=== PATIENT | female | born 2005 ===

== ENCOUNTER 2025-01-28 14:08 | Emergency (ER) | payer OTHER, SELFPAY ==
--- NOTE | ~2025-01-28 | CT_ITS ---
CLINICAL HISTORY: kidney stones. blood in urine CT abdomen and pelvis without contrast Comparison: None available Findings: No nephrolithiasis or hydronephrosis. No bladder stone. No consolidation at the lung bases. Unremarkable gallbladder. The other solid organs are normal. No bowel wall thickening or dilation. A normal appendix is identified. Normal vasculature. No lymphadenopathy. Trace pelvic free fluid, likely physiologic. No acute fracture. Impression: No urinary tract stone, obstruction or other acute findings. This document has been electronically signed by: Salima Tse MD on 01/28/2025 17:03:10
[2025-01-28 14:16] VITALS: BP 113/86; PULSE 64; RESP 16; TEMP 36; O2SAT 100; BMI 25.8
--- NOTE | 2025-01-28 14:19 | ED.GENADULT ---
HPI - General Adult General Chief complaint: Abdominal Pain Stated complaint: Abdominal Cramping Time Seen by Provider: 01/28/25 14:35 Source: patient Mode of arrival: ambulatory Limitations: no limitations History of Present Illness ED Provider: Tho Mcfarlane [facility] narrative: 19 yold female presents to the ED for abdominal cramping, diarrhea, nausea, hedache, and spotting since last night. Patient states no fever or chills. Patient meghan any dysuria, hematuria, flank pain, fever, or chills. Related Data Previous Rx's ?Medication ?Instructions ?Recorded naproxen 500 mg tablet 500 mg PO BID PRN pain #14 tabs 01/28/25 Allergies Allergy/AdvReac Type Severity Reaction Status Date / Time No Known Allergies Allergy Verified 01/28/25 14:20 Review of Systems Review of Systems: nause, cramping, diarhhea, lowe, anusea, vomitting, haeadcje Yes all other systems are reviewed and are negative [facility] Social History Social History Smoked in Last 30 Days: No Use of substances other than those prescribed or required for medical reasons: No Advance Directives: No Advance Directives Information Provided: Yes Do you have a plan to hurt others: No Plan Patient : No Physical Exam ED Vital Signs: Vital Signs - 24 hr 01/28/25 14:16 Temperature 96.8 F Pulse Rate 64 Respiratory Rate 16 Blood Pressure 113/86 Pulse Oximetry 100 Oxygen Delivery Method Room Air BMI result Body Mass Index 25.8 Const General: cooperative, healthy appearing, comfortable, no acute distress, well developed, alert, awake and Physically active Orientation/consciousness: patient oriented x3 HENMT Head: Yes normal to inspection, Yes No palpable skull fracture present, Yes normocephalic and Yes atraumatic Eyes General: appearance normal, both eyes and all related structures Neck Neck: Yes normal visual inspection, Yes full ROM, Yes no lymphadenopathy, Yes no meningeal signs, Yes trachea midline, Yes supple, No anterior neck swelling and No tender Chest Chest palpation & inspection: normal inspection of the chest and normal palpation of entire chest wall Resp Effort & Inspection: normal respiratory effort and able to speak in complete sentences Auscultation: clear to auscultation bilaterally Cardio Jugular venous distension: no JVD Heart sounds: S1 normal heart sound present and S2 normal heart sound present GI Inspection: Yes normal to inspection Palpation (GI): Soft to palpation, not firm, Tenderness to palpation present (GI) suprapubicly, no guarding and not rigid General: Yes no CVA tenderness Back/Spine/Pelvis Back: no CVA tenderness and No back tenderness Skin General skin exam: no rashes or lesions noted and elasticity normal Neuro General: patient oriented x3, gait normal, tone normal, moves all extremities, Normal light touch and pain sensation, no meningeal signs, no focal motor deficits, CN's II-XI intact bilaterally and normal sensation to monofilament Extrem General: Yes normal to inspection, Yes full ROM and Yes capillary refill normal Psych Appearance: grossly normal, well kempt and not disheveled Course Course Course Narrative: RME, this is a rapid medical exam performed by Reed Umana please refer to primary provider for complete H&P- 19 year old female presents for evaluation of lower abdominal pain. She has associated nausea. Plan for labs, UA, and testing. Medical Decision Making Medical Decision Making [facility] Narrative: 19-year-old female presents to the ED for nausea vomiting diarrhea vaginal spotting and headache. Patient is concerned she might be . Labs ordered. Patietn denies any heavy vaginal bleeding or discharge. 4:49pm: Patient negative . UA shows blood. Chemistry CBC normal. CT scan was ordered but patient refused to stay and would like to be discharged. Patient explained CAT scan ordered to rule out any possible kidney stone colitis or any other concerning life-threatening etiology but patient refused. Patient is agreeable to sign against medical advice explained risks including . Differential Diagnosis Differential Diagnoses: The differential diagnosis associated with the presentation includes (Kidney stones, ectopic , dysfunctional uterine bleeding) Admission/Observation Consideration of admission/observation: Escalation of care including admission/observation considered Lab Data [facility] Lab Attestation statement: I reviewed the patient's lab results. 01/28/25 15:16 01/28/25 15:16 Labs: Lab Results 01/28/25 Range/Units 15:16 WBC 9.3 (4.8-10.8) X10*3/uL RBC 4.90 (4.20-5.50) X10*6/uL Hgb 13.3 (12.0-16.0) g/dl Hct 40.4 (37.0-47.0) % MCV 82.4 (80.0-98.0) fL MCH 27.1 (27.0-33.0) pg MCHC 32.9 (31.0-35.0) g/dl RDW 13.9 (11.0-16.0) % Plt Count 259 (160-400) X10*3/uL MPV 11.3 (9.4-12.3) fL Immature Gran % (Auto) 0.3 (0.0-0.4) % Neut % (Auto) 71.8 (45-73) % Lymph % (Auto) 20.5 (20-40) % [place] % (Auto) 6.0 (2-11) % Eos % (Auto) 0.5 (0-4) % Baso % (Auto) 0.9 (0-2) % Lymph # (Auto) 1.9 (1.2-4.9) X10*3/uL [place] # (Auto) 0.6 (0.1-1.2) X10*3/uL Eos # (Auto) 0.1 (0.0-0.4) X10*3/uL Baso # (Auto) 0.1 (0.0-0.2) X10*3/uL Abs Immat Gran (auto) 0.03 (0.00-0.03) X10*3/uL Absolute Neuts (auto) 6.7 (2.0-8.3) x10*3/uL Absolute Nucleated RBC 0.000 (0.0-0.012) X10*3/uL Nucleated RBC % (auto) 0.0 (0.0-0.2) /100WBC Sodium 137 (135-145) mmol/L Potassium 4.8 (3.3-5.1) mmol/L Chloride 106 (96-108) mmol/L Carbon Dioxide 27 (22-29) mmol/L Anion Gap 9 L (12-20) BUN 21 H (9-16) mg/dL Creatinine 0.81 (0.5-1.4) mg/dL Estim Creat Clear Calc 117.0 Estimated GFR > 60 Random Glucose 90 (60-115) mg/dL Calcium 9.3 (8.4-10.2) mg/dL Total Bilirubin 0.4 (0.0-1.0) mg/dL AST 14 (5-31) U/L ALT 13 (0-31) U/L Alkaline Phosphatase 48 (39-117) U/L Total Protein 7.3 (6.5-8.0) g/dL Albumin 4.5 (3.5-5.0) g/dL Lipase 31 (8-78) U/L Beta HCG, Quant < 2 mIU/mL Urine Color Yellow Urine Appearance Clear Urine pH 6.5 (5.0-9.0) Ur Specific [place] 1.015 (1.005-1.025) Urine Protein Negative (Neg-Trace) mg/dL Urine Glucose (UA) Negative (Negative) mg/dL Urine Ketones Negative (Negative) mg/dL Urine Blood Large (3+) H (Negative) Urine Nitrite Negative (Negative) Ur Leukocyte Esterase Negative (Negative) Urine RBC 11-20 H (0-2) /HPF Urine WBC 0-5 (0-5) /HPF Ur Squamous Epith Cells 0-2 (0-2) /HPF Urine Bacteria Trace (None Seen) Hyaline Casts 0-2 (0-2) /LPF Influenza Type A (PCR) NEGATIVE (Negative) Influenza Type B (PCR) NEGATIVE (Negative) RSV RNA Qual (PCR) NEGATIVE (Negative) SARS-CoV-2 RNA (RT-PCR) NEGATIVE (Negative) Independent Historian Clinical information obtained from an independent historian. History obtained from or confirmed by: Other (Patient) Discharge Plan Discharge Clinical Impression: Abdominal pain Patient Disposition: Left Against Medical Advice Instructions: Abdominal Pain (ED) Additional Instructions: Recommend follow-up with primary care provider. Return abdominal pain, vaginal bleeding, vaginal discharge, flank pain, fever, chills, nausea, vomiting, or any other concerning symptoms. Prescriptions: New naproxen 500 mg tablet 500 mg PO BID PRN (Reason: pain) Qty: 14 0RF Stand Alone Forms: Against Medical Advice, Work/School Release Interventions: ED Discharge Assessment Last Done: 01/28/25 17:07 Discharge Date/Time: 01/28/25 17:09 Print Language: Citizen Of [place]
--- OUTSIDE RECORDS SUMMARY | 2025-01-28 14:35 | XMS_ITS | Clinical Summary ---
Author Organization [facility] Address [address] [place] [address] Care Team Providers Care Buildings And Grounds Superintendent Name Role Phone Kay Gonzalez MD Primary Care Provider Source Comments PLEASE NOTE, if this patient is a minor, it may be UNLAWFUL to discuss sensitive information that is contained in these records (such as FAMILY PLANNING, MENTAL HEALTH or SUBSTANCE ABUSE) with the minor patient's parent or other person without the patient's specific authorization.[facility] Allergies No known active allergies Medications polyethylene glycol 3350 17 gram packetIndications :Constipation, unspecified constipation type Mix 1 packet in 1 cup of juice, and take po daily for constipatio n. 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 Immunizations Immunization Administration Dates Next Due DTAP (DAPTACEL),5 PERTUSSIS ANTIGENS 08/2009,09/25/2006,10/07/2005,05/02,01/30/2005 Flu, Preservative Free 09/21/2020 HEP B, PED/ADOL ([id number]-WJQU/RECOMBIVAX-PEDS) 10/09/2005,05/02/2005,01/30/2005 HPV 9 (Gardasil) 01/09/2017,03/12/2016, 6 Hep A, Ped/adol, 2 Dose 06/09/2019,12/02/2006 Hib (PRP-T) 09/25/2006, 6,05/02/2005,01/30 History Of Varicella 01/30/2019 IPV (IPOL) 10/20/2009, 6,05/02/2005,01/30 MENINGOCOCCAL MCV4P (MENACTRA) 03/12/2016 MMR (MMR II/Priorix) 10/20/2009,09/25/2006 PNEUMOCOCCAL CONJUGATE PCV 7 09/25/2006, 09/11/2005,05/02/2005,01/30 Pneumococcal Conjugate, unspecified 10/09/2005 TDAP 01/09/2016 Varicella (Varivax), Live Vaccine 09/25/2006 Social History Tobacco Use Types Packs/Day Years Used Date Smoking Tobacco: Never Smokeless Tobacco: Never Alcohol Use Standard Drinks/Week Comments No 0 (1 standard drink = 0.6 oz pur e alcohol) Social Connections Answer Date Recorded Connectedness 0 04/30/2024 Financial Resource Strain Answer Date R ecorded Financial Resource Strain 0 2023 Stress Answer Date Recorded Stress 0 04/30/2024 Physical Activity Answer Date Recorded Physical Activity 0 04/30/2024 Food Insecurity Answer Date Recorded Food 0 04/30/2024 Transportation Needs Answer Date Record ed Transportation 0 04/30/2024 Housing Stability Answer Date Recorded Housing 0 04/30/2024 Safety and Environment Answer Date Myron rded Safety 0 04/30/2024 Utilities Answer Date Recorded Utilities 0 04/30/2024 Employment Answer Date Recorded Stress 0 04/30/2024 Comments No Sex and Gender Information Value Date Recorded Sex Assigned at Female 04/03/2018 12:20 PM PDT Legal Sex Female 11:36 AM PDT Gender Identity Female 04/03/2018 12:20 PM PDT Sexual Orientation Not on file Last Filed Vital Signs Vital Sign Reading Time Taken Comments Blood Pressure 108/68 09/21/2020 9:07 AM EST Pulse 92 09/21/2020 9:07 AM EST Temperature 37 C (98.6 F) 09/21/2020 9:07 AM EST Respiratory Rate 16 09/21/2020 9:07 AM EST Oxygen Saturation - - Inhaled Oxygen Concentration - - Weight 68.9 kg (152 lb) 09/21/2020 9:07 AM EST Height 165.1 cm (5' 5 ) 09/21/2020 9:07 AM EST Body Mass Index 25.29 09/21/2020 9:07 AM EST Plan of Treatment Health Maintenance Due Date Last Done Comments Tobacco Screening 2004 Anxiety Screening 04/03/2019 04/03/2018 Relationship Safety Screening/Counseling 11/28/2019 Chlamydia Screening 09/21/2021 09/21/2020 Gonorrhea Screening 09/21/2021 09/21/2020 Hypertension Screening (#1) 09/21/2023 [id number] () 03/21/2024 Alcohol and Drug Screen 07/21/2024 09/21/2020, 01/09 Depression Annual Screen 07/21/2024 09/21/2020, 12/20 Imm-Influenza (#1) 2025 09/21/2020 Imm-DTaP/Tdap/Td (7 - Td or Tdap) 01/08/2026 01/09/2016, 10/20/2009, 09/25/2006, Additional history exists Imm-Hepatitis B Completed 10/09/2005, 04/20, 01/30/2005 Imm-MMR Completed 10/20/2009, 09/25/2006 Imm-HPV Completed 01/09/2017, 02/19, 01/09/2016 Imm-Hepatitis A Completed 06/09/2019, 12/02/2006 HIV Screening Completed 09/21/2020 Hepatitis C Screening Completed 09/21/2020 Procedures Procedure Name Priority Date/Time Associated Diagnosis Comments GC DNA PROBE, URINE Routine 09/21/2020 1 1:54 AM EST Encounter for routine child health examination without abnormal findings CHLAMYDIA DNA PROBE, URINE Routine 09/21/2020 11:54 AM EST Encounter for routine child health examination without abnormal findings ANTIBODY HIV-1&HIV-2 SINGLE RESULT Routine 09/21/2020 10:05 AM EST Encounter for routine child health examination without abnormal findings HEPATITIS C ANTIBODY Routine 09/21/2020 10:05 AM EST Encounter for routine child health examination without abnormal findings from Last 3 Months or Most Recently Relevant to Health Maintenance Results * GC DNA PROBE, URINE ([employer]) (09/21/2020 11:54 AM EST) GC DNA URINE NEGATIVE NEGATIVE [facility] Urine Urine specimen / Unknown 09/21/2020 11:54 AM EST 09/21/2020 11:54 AM EST [facility] - 09/25/2020 10:44 AM EST [employer], [place] [address] Improvement [place] [id number] ORD# [id number] Marcie Woodard MD LAB - MICROBIOLOGY AMBULATOR Y Final Result [address] [address], [place] [phone] * CHLAMYDIA DNA PROBE, URINE ([employer]) (09/21/2020 11:54 AM EST) Pathologist [facility] CHLAMYDIA DNA URINE NEGATIVE NEGATIVE [facility] Urine Urine specimen / Unknown 09/21/2020 11:54 AM EST 09/21/2020 11:54 AM EST [facility] - 09/25/2020 10:44 AM EST [employer], [place] [address] Improvement [place] [id number] ORD# [id number] Marcie Woodard MD LAB - MICROBIOLOGY AMBULATOR Y Final Result [address] [address], [place] [phone] * HEPATITIS C ANTIBODY (09/21/2020 10:05 AM EST) Pathologist [facility] HEPATITIS C VIRUS SCREEN NEGATIVE NEGATIVE [facility] Blood Blood / Unknown 09/21/2020 1 0:05 AM EST 09/21/2020 10:11 AM EST [facility] - 09/21/2020 2:06 PM EST [employer], [place] [address] Improvement [place] [id number] ORD# [id number] Marcie Woodard MD LAB - BLOOD DRAW Final Resul t Performing Organization Address City/[facility]/[place] [address], * HIV-1 & HIV-2 ANTIBODIES (09/21/2020 10:05 AM EST) [facility] HIV 1 AND 2 ANTIBODY SCREEN NEGATIVE NEGATIVE [facility] Comment: This assay is a 4th generation assay allowing for earlier detection of HIV infection by detecting the presence of the HIV-1 p24 antigen as well as the traditional antibodies to HIV type 1 (including group O) and type 2. Use of a 4th generation assay is the current CDC recommendation for HIV screening. Blood Blood / Unknown 09/21/2020 1 0:05 AM EST 09/21/2020 10:11 AM EST [facility] - 09/21/2020 2:06 PM [facility], [place] [address] Improvement Spec [place] [id number] ORD# [id number] Marcie Woodard MD LAB - BLOOD DRAW Final Resul t Performing Organization Address City/[facility]/[place] [address], [place] [phone] from Last 3 Months or Most Recently Relevant to Health Maintenance Insurance [facility] [address] [employer] Care Teams Buildings And Grounds Superintendent Relationship Specialty Start Date End Date Kay Gonzalez MD [address] [place] [address] PCP - General Pediatrics 09/05/22
--- OUTSIDE RECORDS SUMMARY | 2025-01-28 14:35 | XMS_ITS | Clinical Summary ---
Author Organization [facility] Address [address] [place] [address] Phone Care Team Providers Care Obstetrics Nurse Practitioner Name Role Phone Physician, Pcp Unknown Primary Care Provider Bhakti vailable Allergies No known active allergies Social History Tobacco Use Types Packs/Day Years Used Date Smoking Tobacco: Never Smokeless Tobacco: Never Tobacco Cessation:Counseling Given: Not Answered Comments Unknown Sex and Gender Information Value Date Recorded Sex Assigned at Not on file Legal Sex Female 4:32 PM EST Gender Identity Not on file Sexual Orientation Not on file Obstetrics History Last Filed Vital Signs Vital Sign Reading Time Taken Comments Blood Pressure 125/75 10/28/2024 9:31 PM EDT Pulse 83 10/28/2024 9:31 PM EDT Temperature 36.6 C (97.8 F) 10/28/2024 7:19 PM EDT Respiratory Rate 16 10/28/2024 9:31 PM EDT Oxygen Saturation 100% 10/28/2024 9:31 PM EDT Inhaled Oxygen Concentration - - Weight 70.3 kg (155 lb) 10/28/2024 7:19 PM EDT Height 165.1 cm (5' 5 ) 10/28/2024 7:19 PM EDT Body Mass Index 25.79 10/28/2024 7:19 PM EDT Plan of Treatment Health Maintenance Due Date Last Done Comments Gonorrhea/Chlamydia Screening 2004 Varicella Vaccines (2 of 2 - 2-dose childhood series) 11/17/2009 09/25/2006 Meningococcal B Vaccine (1 of 2 - Standard) 2020 COVID-19 Vaccine ( - season) 2024 Annual Well Child Visit (3-21 years old) 10/29/2024 09/21/2020, 06/09/2019, 04/03/2018, Additional history exists Depression Screening 10/29/2024 Social Influencers of Health Screening 10/29/2024 Influenza Vaccine (#1) 2025 09/21/2020 Cholesterol Screening (Lipid Panel) 09/21/2025 09/21/2020 DTaP,Tdap,and Td Vaccines (7 - Td or Tdap) 01/08/2026 01/09/2016, 10/20/2009, 09/25/2006, Additional history exists Hepatitis B Vaccines Completed 10/09/2005, 05/02/2005, 01/30/2005 HIB Vaccines Completed 09/25/2006, 09/19, 05/02/2005, Additional history exists Pneumococcal Vaccine: Pediatrics (0 to 5 Years) and At-Risk Patients (6 to 49 Years) Completed 09/25/2006, 09/11/2005, 05/02/2005, Additional history exists IPV Vaccines Completed 10/20/2009, 09/19, 05/02/2005, Additional history exists MMR Vaccines Completed 10/20/2009, 09/25/2006 Meningococcal ACWY Vaccine Aged Out 03/12/2016 N o longer eligible based on patient's age to complete this topic HPV Vaccines Completed 01/09/2017, 02/19, 01/09/2016 Hepatitis A Vaccines Completed 06/09/2019, 12/03/19 07 HIV Screening Completed 09/21/2020 Hepatitis C Screening Completed 09/21/2020, 021 RSV Immunization Patients Under 20 months Aged Out No longer eligible based on patient's age to complete this topic Insurance [facility] MEDICAID [employer] [address] [place] [address] Care Teams Obstetrics Nurse Practitioner Relationship Specialty Start Date End Date Physician, Pcp Unknown PCP - General 10/28/24
[2025-01-28 15:21] LABS: MANUAL DIFF FLAG NO
[2025-01-28 15:24] LABS: Appearance Urine Clear; Glucose Urine UA Negative (Negative); PH 6.5 (5.0-9.0); Specific Gravity - Urine 1.015 (1.005-1.025); UMIC TRIGGER UACC YES
[2025-01-28 15:25] LABS: Hematocrit 40.4 % (37.0-47.0); Hemoglobin 13.3 g/dl (12.0-16.0); Imm Gran Abs Auto 0.03 X10*3/uL (0.00-0.03); Imm Gran Pct Auto 0.3 % (0.0-0.4); Lymphocytes Absolute Auto 1.9 X10*3/uL (1.2-4.9); Mean Corpuscular HGB Conc 32.9 g/dl (31.0-35.0); Mean Corpuscular Hemoglobin 27.1 pg (27.0-33.0); Mean Corpuscular Volume 82.4 fL (80.0-98.0); NRBC Abs Auto 0.000 X10*3/uL (0.0-0.012); NRBC Pct Auto 0.0 /100WBC (0.0-0.2); Platelet Count 259 X10*3/uL (160-400); Red Blood Count 4.90 X10*6/uL (4.20-5.50); White Blood Count 9.3 X10*3/uL (4.8-10.8)
[2025-01-28 15:48] LABS: Alanine Aminotransferase 13 U/L (0-31); Albumin Level 4.5 g/dL (3.5-5.0); Alkaline Phosphatase 48 U/L (39-117); Anion Gap 9 (12-20); Aspartate Amino Transferase 14 U/L (5-31); Blood Urea Nitrogen 21 mg/dL (9-16); Calcium 9.3 mg/dL (8.4-10.2); Carbon Dioxide 27 mmol/L (22-29); Chloride 106 mmol/L (96-108); Creatinine Clr Calc Pharmacy 117.0; Estimated Glomerular Filt Rate > 60; Lipase 31 U/L (8-78); Potassium 4.8 mmol/L (3.3-5.1); Sodium 137 mmol/L (135-145); Total Protein 7.3 g/dL (6.5-8.0)
[2025-01-28 16:25] LABS: Resp Syncy Virus RNA Qual PCR NEGATIVE (Negative); SARS COV2 PCR INHOUSE NEGATIVE (Negative)
--- NOTE | 2025-01-28 17:04 | PC.NURSE ---
Pt requesting to leave AMA- Tho HOOKER made aware, pt to sign out AMA. Upon entry to room to d/c pt, pt found to have left ED on own. No IV line placed. Tho HOOKER aware. Unable to obtain d/c vitals.
[2025-01-28 17:07] VITALS: BP 0/0; PULSE 0; RESP 0; TEMP -17.7; TEMP 0; O2SAT 0
== END 2025-01-28 17:09 | disposition left against medical advice (07) ==
PROVIDERS: Physician Assistant; Emergency Provider Emergency Medicine
DX: R10.30 Lower abdominal pain, unspecified (principal); Z53.29 Procedure and treatment not carried out because of patient's decision for other reasons; Z03.818 Encounter for observation for suspected exposure to other biological agents ruled out
CPT/HCPCS: 36415; 74176; 80053; 81001; 83690; 84702; 85025; 87637; 99284

== ENCOUNTER → 2025-01-28 16:15 | Outpatient (BNV) | payer OTHER, SELFPAY | PROVIDERS: Emergency Provider Emergency Medicine; Visit Provider Radiology Diagnostic Radiology | DX: N20.0 Calculus of kidney (principal); R31.9 Hematuria, unspecified | CPT/HCPCS: 74176 ==